=== PATIENT | male | born 1985 | race Caucasian/White ===

== ENCOUNTER 2016-08-28 10:16 | Emergency (ER) | payer MEDICAID ==
[2016-08-28 10:20] VITALS: O2SAT 98
--- NOTE | 2016-08-28 10:31 | EDPHY ---
H & P Stated Complaint: "I need IV fluids and narcoticsc" D/C'd from inpt 2 days ago Time Seen by Provider: 08/28/16 10:28 HPI/ROS: CHIEF COMPLAINT: Nausea vomiting HISTORY OF PRESENT ILLNESS: 31-year-old male history of possible cyclic vomiting verses cannabis hyperemesis syndrome, admitted the hospital few days ago for same complaint, he had multiple chemistry abnormalities including creatinine of 2.4 . He went to follow up with [facility] of the [facility] today, was retching in the waiting room and they recommended he come to the ER for evaluation. He is in the ER complaining of diffuse abdominal pain, cramping, nausea, vomiting, retching. No complaints. No melena or hematochezia. REVIEW OF SYSTEMS: A ten point review of systems was performed and is negative with the exception of the items mentioned in the HPI PAST MEDICAL & SURGICAL HISTORY: chronic marijuana use SOCIAL HISTORY:regular marijuana use PHYSICAL EXAM (Prior to examination, patient consented to physical exam, hands were washed and my usual and customary physical exam procedures followed) 1) GENERAL: Well-developed, well-nourished, alert and oriented. He is retching , guarding his abdomen, moaning 2) HEAD: Normocephalic, atraumatic 3) HEENT: Pupils equal, round, reactive to light bilaterally. Sclera anicteric. Nasopharynx, oropharynx, clear, no lesions. Dry mucous membrane 4) NECK: Full range of motion, no meningeal signs. 5) LUNGS: Clear auscultation bilaterally, no wheezes, no rhonchi, no retractions. 6) HEART: Regular rate and rhythm, no murmur, no heave, no gallop. 7) ABDOMEN: he is guarding his abdomen, no rebound, no focal tenderness, negative McBurney's, negative De La Paz's, negative Rovsing's, negative peritoneal sign, 8) MUSCULOSKELETAL: Moving all extremities, no focal areas of tenderness, no obvious trauma. No peripheral edema or discoloration. 9) BACK: No CVA tenderness, no midline vertebral tenderness, no fluctuance, no step-off, no obvious trauma, no visual or palpable abnormality. 10) SKIN: No rash, no petechiae. 11) Psychiatric: Patient is oriented X 3, there is no agitation. DIFFERENTIAL DIAGNOSIS: My differential diagnosis includes, but is not limited to, acute appendicitis, acute cholecystitis, bowel obstruction, acute pancreatitis, gastritis and urinary tract infection. The patient understands that this diagnosis is provisional and can never be 100% accurate. This is a partial list of diagnoses considered. These considerations are based on history , physical exam, past history and reassessment. - Personal History Current Tetanus Diphtheria and Acellular Pertussis (TDAP): Yes - Medical/Surgical History Hx Asthma: No Hx Chronic Respiratory Disease: No Hx Diabetes: No Hx Cardiac Disease: No Hx Renal Disease: No Hx Cirrhosis: No Hx Alcoholism: No Hx HIV/AIDS: No Hx Splenectomy or Spleen Trauma: No Other PMH: cyclical vomiting, ? IBS, uses marijuana. - Social History Smoking Status: Current every day smoker Constitutional: Initial Vital Signs Heart Rate 127 H 08/28/16 10:18 Respiratory Rate 20 08/28/16 10:18 Blood Pressure 172/108 H 08/28/16 10:18 O2 Sat (%) 98 08/28/16 10:18 O2 Delivery Mode Room Air Allergies/Adverse Reactions: No Known Allergies Allergy (Verified 08/28/16 10:17) Home Medications: Medication Instructions Recorded ALPRAZolam [Xanax 0.5 MG (*)] 0.5 mg PO TID PRN #30 tab 08/26/16 Acetaminophen [Tylenol 325mg (*)] 650 mg PO Q6HRS PRN #0 tab 08/26/16 Calcium Carbonate [Tums 500MG (*)] 500 - 1,000 mg PO Q4 PRN #0 08/26/16 tab.chew Ibuprofen [Motrin (*)] 600 mg PO Q8HRS PRN #0 tab 08/26/16 Ketorolac Tromethamine [Toradol] 10 mg PO Q6H #16 tab 08/26/16 Ondansetron Odt [Zofran Odt 4 mg 4 mg PO Q4HRS PRN #30 tab 08/26/16 (*)] Promethazine HCl [Phenergan 25mg 12.5 mg PO Q6HRS PRN #30 tab 08/26/16 (*)] Medical Decision Making ED Course/Re-evaluation: 10:29 a.m.: I received a phone call from [facility] he has a MIRIMA Correia prior to the patient's visit informed me that she would like to see the patient in clinic this afternoon and recommended he receive IV hydration and emesis control in the ER if possible and then return to the clinic. I have reviewed his old medical records. I am familiar with this patient as I admitted into the hospital service few days ago. Discussed case Dr. Marcela Wall in ER 11:10 a.m.: Re-evaluation after Ativan, Haldol. He remains retching loudly, complaining abdominal pain, nausea. Will administer further medication and revaluate. 12:01 p.m.: Re-evaluation, sleeping. Re-evaluated abdomen which is flat, soft , no guarding no rebound, no McBurney's point pain. Doubt acute surgical abdominal pathology. I do not think that repeat abdominal imaging indicated. He feels comfortable being discharged, feels comfortable going back to an afternoon appointment with [facility] he has with MIRIAM Correia. - Data Points Laboratory Results: Laboratory Results 08/28/16 10:40 08/28/16 10:40 08/28/16 08/28/16 10:40 10:40 WBC 8.69 10^3/uL 10^3/uL (3.80-9.50) RBC 4.90 10^6/uL 10^6/uL (4.40-6.38) Hgb 15.2 g/dL g/dL (13.7-17.5) Hct 42.0 % % (40.0-51.0) MCV 85.7 fL fL (81.5-99.8) MCH 31.0 pg pg (27.9-34.1) MCHC 36.2 g/dL g/dL (32.4-36.7) RDW 13.0 % % (11.5-15.2) Plt Count 227 10^3/uL 10^3/uL (150-400) MPV 9.0 fL fL (8.7-11.7) Neut % (Auto) 78.0 % H % (39.3-74.2) Lymph % (Auto) 12.4 % L % (15.0-45.0) [place] % (Auto) 7.7 % % (4.5-13.0) Eos % (Auto) 0.9 % % (0.6-7.6) Baso % (Auto) 0.5 % % (0.3-1.7) Nucleat RBC Rel Count 0.0 % % (0.0-0.2) Absolute Neuts (auto) 6.78 10^3/uL H 10^3/uL (1.70-6.50) Absolute Lymphs (auto) 1.08 10^3/uL 10^3/uL (1.00-3.00) Absolute Monos (auto) 0.67 10^3/uL 10^3/uL (0.30-0.80) Absolute Eos (auto) 0.08 10^3/uL 10^3/uL (0.03-0.40) Absolute Basos (auto) 0.04 10^3/uL 10^3/uL (0.02-0.10) Absolute Nucleated RBC 0.00 10^3/uL 10^3/uL (0-0.01) Immature Gran % 0.5 % % (0.0-1.1) Immature Gran # 0.04 10^3/uL 10^3/uL (0.00-0.10) Sodium 144 mEq/L mEq/L (134-144) Potassium 4.0 mEq/L mEq/L (3.5-5.2) Chloride 104 mEq/L mEq/L (97-110) Carbon Dioxide 24 mEq/l mEq/l (22-31) Anion Gap 16 mEq/L mEq/L (8-16) BUN 28 mg/dL H mg/dL (7-23) Creatinine 1.0 mg/dL mg/dL (0.7-1.3) Estimated GFR > 60 Glucose 106 mg/dL H mg/dL (70-100) Calcium 10.5 mg/dL H mg/dL (8.5-10.4) Total Bilirubin 1.0 mg/dL mg/dL (0.1-1.4) Conjugated Bilirubin 0.4 mg/dL mg/dL (0.0-0.5) Unconjugated Bilirubin 0.6 mg/dL mg/dL (0.0-1.1) AST 31 IU/L IU/L (17-59) ALT 31 IU/L IU/L (21-72) Alkaline Phosphatase 68 IU/L IU/L (38-126) Total Protein 8.3 g/dL H g/dL (6.3-8.2) Albumin 5.2 g/dL H g/dL (3.5-5.0) Lipase 73.0 IU/L IU/L (23-300) Medications Given: Discontinued Medications Haloperidol Lactate (Haldol Injection) 5 mg IVP EDNOW ONE Stop: 08/28/16 10:46 Last Admin: 08/28/16 10:54 Dose: 5 mg Hydromorphone HCl (Dilaudid) 1 mg IVP EDNOW ONE Stop: 08/28/16 11:16 Last Admin: 08/28/16 11:33 Dose: 1 mg Sodium Chloride (Ns) 1,000 mls @ 0 mls/hr IV ONCE ONE PRN Reason: Wide Open Stop: 08/28/16 10:46 Last Admin: 08/28/16 10:55 Dose: 1,000 mls Ketorolac Tromethamine (Toradol) 30 mg IVP EDNOW ONE Stop: 08/28/16 10:46 Last Admin: 08/28/16 10:55 Dose: 30 mg Lorazepam (Ativan Injection) 2 mg IVP EDNOW ONE Stop: 08/28/16 10:46 Last Admin: 08/28/16 10:55 Dose: 2 mg Ondansetron HCl (Zofran) 4 mg IVP EDNOW ONE Stop: 08/28/16 11:24 Last Admin: 08/28/16 11:34 Dose: 4 mg Departure - Departure Disposition: Home, Routine, Self-Care Clinical Impression: Nausea & vomiting Qualifiers: Vomiting type: cyclical vomiting Vomiting Intractability: non-intractable Qualified Code(s): G43.A0 - Cyclical vomiting, not intractable Condition: Good Instructions: Acute Nausea and Vomiting (ED) Additional Instructions: Seek immediate medical attention if you develop new or worsening symptoms, if you develop fevers, chills, inability to tolerate oral intake or any other symptoms that concerns you. Referrals: Go, to [facility] this afternoon [Other] - 08/28/16 1:00 pm
[2016-08-28] MEDS ORDERED: KETOROLAC 30 MG/1 ML SDV IVP ONE (10:45)
[2016-08-28] MEDS ORDERED: LORazepam 2 MG/ML INJ IVP ONE (10:45)
[2016-08-28] MEDS ORDERED: NS 1,000 ML IV ONE (10:45)
[2016-08-28] MEDS ORDERED: HALOPERIDOL LACT 5 MG/ML INJ IVP ONE (10:45)
[2016-08-28 10:54] LABS: % IMMATURE GRANULYOCYTES 0.5 % (0.0-1.1); ABSOLUTE IMMATURE GRANULOCYTES 0.04 10^3/uL (0.00-0.10); ADD DIFF? NO; ADD MORPH? NO; ADD SCAN? NO; ATYPICAL LYMPHOCYTE FLAG 0 (0-99); FRAGMENT RBC FLAG 0 (0-99); HEMOGLOBIN 15.2 g/dL (13.7-17.5); LEFT SHIFT FLG 0 (0-99); LIPEMIA HEMOLYSIS FLAG 90 (0-99); MEAN CELL HEMOGLOBIN CONCENTR. 36.2 g/dL (32.4-36.7); MEAN CELL VOLUME 85.7 fL (81.5-99.8); PLATELET CLUMPS FLAG 20 (0-99); PLATELET COUNT 227 10^3/uL (150-400)
[2016-08-28 11:12] LABS: ALANINE AMINOTRANSFERASE 31 IU/L (21-72); ALBUMIN 5.2 g/dL (3.5-5.0); ALKALINE PHOSPHATASE 68 IU/L (38-126); ANION GAP 16 mEq/L (8-16); ASPARTATE AMINOTRANSFERASE 31 IU/L (17-59); BILIRUBIN-CONJUGATED 0.4 mg/dL (0.0-0.5); BILIRUBIN-UNCONJUGATED 0.6 mg/dL (0.0-1.1); CALCIUM 10.5 mg/dL (8.5-10.4); CARBON DIOXIDE 24 mEq/l (22-31); CHLORIDE 104 mEq/L (97-110); GLOMERULAR FILTRATION RATE > 60; GLUCOSE 106 mg/dL (70-100); SODIUM 144 mEq/L (134-144); TOTAL PROTEIN 8.3 g/dL (6.3-8.2)
[2016-08-28] MEDS ORDERED: HYDROmorphONE/DILAUDID 1 MG/ML SYR IVP ONE (11:15)
[2016-08-28] MEDS ORDERED: ONDANSETRON 4 MG/2 ML VIAL IVP ONE (11:23)
[2016-08-28 12:59] VITALS: BP 172/105; PULSE 83; RESP 16
== END 2016-08-28 12:57 | disposition home or self-care (01) ==
LOC: MERGE 10:16
DX: G43.A0 Cyclical vomiting, in migraine, not intractable (principal); F17.200 Nicotine dependence, unspecified, uncomplicated
CPT/HCPCS: 96374; J1170; J1885; J2405

== ENCOUNTER 2018-08-18 05:26 | Emergency (ER) | payer MEDICAID ==
[2018-08-18 05:37] VITALS: BP 158/95
--- NOTE | 2018-08-18 06:08 | EDPHY ---
H & P Stated Complaint: 160mg adderall and ETOH to get high not for SI neck tightness and JOHN Time Seen by Provider: 08/18/18 05:40 HPI/ROS: Chief Complaint: Headache, anxious status post amphetamine use HPI: 33-year-old male presenting requesting medical evaluation after taking 160 mg of Adderall and drinking vodka. Patient states that he has a history of substance abuse but has been through rehab in the past. The last 2 months he has been using Vyvanse, Ritalin and Adderall recreationally. He has had increasing stressors and took the Adderall this morning. He then became quite anxious and agitated in decided to drink vodka to counteract this. He states that recently when taking the amphetamines he has been noticing headache in the right side of his head in tightness in his neck. No chest pain or shortness of breath. No cough. No fevers or chills. He is currently without complaint. He denies being depressed or suicidal. He is not attempting to harm himself but admits to taking these recreationally. He is anuja for safety. Currently is just wants to be examined and provided resources to help with his substance abuse. ROS: 10 systems were reviewed and were negative except those elements noted in the HPI. PMH: Substance abuse Social History: No smoking, positive alcohol, positive methamphetamine abuse Family History: non-contributory Physical Exam: Gen: Awake, Alert, mildly slurred speech, appears mildly intoxicated HEENT: Nose: no rhinorrhea Eyes: PERRLA, EOMI Mouth: Moist mucosa Neck: Supple, no JVD Chest: nontender, lungs clear to auscultation Heart: S1, S2 normal, no murmur Abd: Soft, non-tender, no guarding Back: no CVA tenderness, no midline tenderness Ext: no edema, non-tender Skin: no rash Neuro: CN II-XII intact, Sensation grossly intact, Strength 5/5 in bilateral upper and lower extremities - Personal History Current Tetanus/Diphtheria Vaccine: Yes Current Tetanus Diphtheria and Acellular Pertussis (TDAP): Yes - Medical/Surgical History Hx Asthma: No Hx Chronic Respiratory Disease: No Hx Diabetes: No Hx Cardiac Disease: No Hx Renal Disease: No Hx Cirrhosis: No Hx Alcoholism: No Hx HIV/AIDS: No Hx Splenectomy or Spleen Trauma: No Other PMH: cyclical vomiting, ? IBS, uses marijuana. - Social History Smoking Status: Current every day smoker Constitutional: Initial Vital Signs Temperature (C) 36.5 C 08/18/18 05:27 Heart Rate 114 H 08/18/18 05:27 Respiratory Rate 18 08/18/18 05:27 Blood Pressure 158/95 H 08/18/18 05:27 O2 Sat (%) 96 08/18/18 05:27 O2 Delivery Mode Room Air Allergies/Adverse Reactions: No Known Allergies Allergy (Verified 08/18/18 05:37) Home Medications: Medication Instructions Recorded NK [No Known Home Meds] 08/18/18 Medical Decision Making ED Course/Re-evaluation: 33-year-old male presenting and mildly intoxicated with concerns after taking Adderall and alcohol. He has not have a headache or any other symptoms at this time. He is fully conversant. He is mostly requesting assistance with his substance abuse. I have explained to him that I can refer [facility] and to primary care for follow-up but I do not have resources to sent him directly to rehab facility. He states he does not want a rehab facility he just wants a medical evaluation and some advice on how to proceed. I have explained to him that I do not see any evidence of acute medical condition. He is tachycardic which is consistent which is consistent with his amphetamine use. The patient is very tangential in rambling in his speech. He has repeated thing several times. He is here with his girlfriend. I have made multiple attempts to reassure the patient explained to them that he has not have an emergency medical condition and his examination is unremarkable. He can be discharged to home. Patient states that he feels that I am not listening to him and I am judging him. I have explained to him that is not the case and I am happy to assist him with his substance abuse problems. He does not require any further evaluation in the emergency department at this time. Departure - Departure Disposition: Home, Routine, Self-Care Clinical Impression: Polysubstance abuse, Alcoholic intoxication Condition: Good Instructions: Alcohol Intoxication (ED), Polysubstance Abuse (ED) Additional Instructions: Please contact the addiction recovery Center for resources to help you with your substance abuse. Follow up with primary care physician for further evaluation for any medical concerns. Referrals: Fariha Montejo MD [Medical Doctor] - As per Instructions [facility] [Outside] - As per Instructions
== END 2018-08-18 06:18 | disposition home or self-care (01) ==
DX: F19.10 Other psychoactive substance abuse, uncomplicated (principal); F10.920 Alcohol use, unspecified with intoxication, uncomplicated

== ENCOUNTER 2018-09-19 20:22 | Emergency (ER) | payer MEDICAID, OTHER ==
[2018-09-19] MEDS ORDERED: NS 1,000 ML IV ONE ×3 (20:49→22:09)
[2018-09-19] MEDS ORDERED: HALOPERIDOL LACT 5 MG/ML INJ IVP ONE (20:49)
[2018-09-19] MEDS ORDERED: LORazepam 2 MG/ML INJ IVP ONE (20:50)
--- NOTE | 2018-09-19 20:50 | EDPHY ---
H & P Stated Complaint: wants fluids for "stress induced nausea disorder" Source: Patient Exam Limitations: No limitations - Personal History Current Tetanus/Diphtheria Vaccine: Yes Current Tetanus Diphtheria and Acellular Pertussis (TDAP): Yes - Medical/Surgical History Hx Asthma: No Hx Chronic Respiratory Disease: No Hx Diabetes: No Hx Cardiac Disease: No Hx Renal Disease: No Hx Cirrhosis: No Hx Alcoholism: No Hx HIV/AIDS: No Hx Splenectomy or Spleen Trauma: No Other PMH: cyclical vomiting, ? IBS, uses marijuana. - Social History Smoking Status: Current every day smoker Time Seen by Provider: 09/19/18 20:47 HPI/ROS: HPI: This is a 33-year-old male who presents with Chief Complaint: wants fluids for "stress induced nausea disorder" Location: GI Quality: Nausea, vomiting Duration: Since 4:00 a.m. Signs and Symptoms: no fever, + nausea, + vomiting, no hematemesis, no blood in stool, no abdominal bloating, no diarrhea, no back pain, no urinary symptoms, no testicular/groin pain, no indigestion, no chest pain, no shortness of breath Timing: Acute, intermittent episodes Severity: Moderate Context: Patient has a history of cyclical vomiting syndrome, marijuana use, irritable bowel syndrome presents with sudden onset around 4:00 a.m. This morning of nausea and vomiting approximately 10-20 times. He denies any hematemesis, blood in stool, fever, diarrhea. He did report he had 3 bowel movements today. Patient denies recent alcohol or marijuana use. He reports that he "is under a lot of stress." Does not follow with Gastroenterology. Modifying Factors: None Comment: ROS: A comprehensive 10 system review of systems is otherwise negative aside from elements mentioned in the history of present illness. MEDICAL/SURGICAL/SOCIAL HISTORY: Medical history: Cyclical vomiting syndrome, marijuana user, irritable bowel syndrome Surgical history: Denies Social history: Daily tobacco user. Family history noncontributory. CONSTITUTIONAL: Moderate distress, extremely well-appearing, adult white male, smells heavily of tobacco, awake and alert, no obvious distress HEENT: Atraumatic and normocephalic, PERRL, EOMI. Nares patent; no rhinorrhea; no nasal mucosal edema. Tympanic membranes clear. Oropharynx clear, no exudate and moist pink mucosa. Airway patent. No lymphadenopathy. No meningismus. Cardiovascular: Normal S1/S2, regular rate, regular rhythm, without murmur rub or gallop. PULMONARY/CHEST: Symmetrical and nontender. Clear to auscultation bilaterally. Good air movement. No accessory muscle usage. ABDOMEN: Soft, nondistended, mild generalized tenderness, no rebound, no guarding, no peritoneal signs, no masses or organomegaly. No CVAT. EXTREMITIES: 2/2 pulses, strength 5/5, no deformities, no clubbing, no cyanosis or edema. NEUROLOGICAL: no focal neuro deficits. GCS 15. SKIN: Warm and dry, no erythema. no rash. Good capillary refill. (Shahnaz Ryder) Constitutional: Initial Vital Signs Temperature (C) 36.7 C 09/19/18 20:23 Heart Rate 122 H 09/19/18 20:23 Respiratory Rate 18 09/19/18 20:23 Blood Pressure 131/107 H 09/19/18 20:23 O2 Sat (%) 99 09/19/18 20:23 O2 Delivery Mode Room Air Allergies/Adverse Reactions: No Known Allergies Allergy (Verified 09/19/18 20:26) Home Medications: Medication Instructions Recorded Ondansetron Odt [Zofran Odt 4 mg 4 mg PO Q4 PRN #12 tab 09/19/18 (*)] RX: Promethazine HCl 25 mg PO Q6 PRN #10 tablet 09/19/18 Medical Decision Making ED Course/Re-evaluation: I did not see this patient while he was in the emergency department. However his care was discussed with the PA while the patient was in the department. I agree with treatment plan and management (Mic Haney) Vital signs reviewed and show elevated blood pressure and tachycardia. IV access, laboratory studies ordered Abdomen is soft and minimally tender. Doubt surgical process or need for imaging. Given 3 L normal saline, IV Haldol 2.5 mg, IV Ativan 2 mg 2210: Labs reviewed. BUN 26, creatinine 3.2 ED decision to consult for admission for pre renal acute kidney injury secondary to GI losses. Patient refused admission to the hospital despite knowing risks of acute kidney injury, electrolyte imbalance, arrhythmias, sepsis , . Friend at bedside reports that patient will not stay in the hospital. Patient is alert and oriented x4. Patient refused to have repeat laboratory studies drawn. No episodes of emesis 4 hr while in the emergency room. 0030: Signed AMA paperwork. Repeat abdominal exam is soft and nontender. Again recommend inpatient admission for IV fluid hydration and repeat labs in the morning and patient adamantly declined. Given a prepack for promethazine and of prescription for promethazine and Zofran with Gastroenterology and [facility] follow-up This patient was seen under the supervision of my secondary supervising physician. I evaluated care for this patient with attending. (Shahnaz Ryder) Differential Diagnosis: Abdominal pain including but not limited to appendicitis, cholecystitis, gastritis and urinary tract infection. (Shahnaz Ryder) - Data Points Laboratory Results: Laboratory Results 09/19/18 21:15 09/19/18 21:15 Sodium 139 mEq/L mEq/L (135-145) Potassium 5.0 mEq/L mEq/L (3.5-5.2) Chloride 96 mEq/L L mEq/L (97-110) Carbon Dioxide 14 mEq/l L mEq/l (22-31) Anion Gap 29 mEq/L H mEq/L (6-14) BUN 26 mg/dL H mg/dL (7-23) Creatinine 3.2 mg/dL H mg/dL (0.7-1.3) Estimated GFR 22 Glucose 213 mg/dL H mg/dL (70-100) Calcium 12.5 mg/dL H mg/dL (8.5-10.4) Phosphorus 5.5 mg/dL H mg/dL (2.5-4.5) Total Bilirubin 1.0 mg/dL mg/dL (0.1-1.4) Conjugated Bilirubin 0.6 mg/dL H mg/dL (0.0-0.5) Unconjugated Bilirubin 0.4 mg/dL mg/dL (0.0-1.1) AST 25 IU/L IU/L (17-59) ALT 22 IU/L IU/L (21-72) Alkaline Phosphatase 101 IU/L IU/L (38-126) Total Protein 10.5 g/dL H g/dL (6.3-8.2) Albumin 7.0 g/dL H g/dL (3.5-5.0) Lipase 87 IU/L IU/L (23-300) Medications Given: Discontinued Medications Haloperidol Lactate (Haldol Injection) 2.5 mg IVP EDNOW ONE Stop: 09/19/18 20:50 Last Admin: 09/19/18 21:20 Dose: 2.5 mg Sodium Chloride (Ns) 1,000 mls @ 0 mls/hr IV EDNOW ONE; Wide Open PRN Reason: Protocol Stop: 09/19/18 20:50 Last Admin: 09/19/18 21:19 Dose: 1,000 mls Sodium Chloride (Ns) 1,000 mls @ 0 mls/hr IV EDNOW ONE; Wide Open PRN Reason: Protocol Stop: 09/19/18 20:50 Last Admin: 09/19/18 21:19 Dose: 1,000 mls Sodium Chloride (Ns) 1,000 mls @ 0 mls/hr IV EDNOW ONE; Wide Open PRN Reason: Protocol Stop: 09/19/18 22:10 Last Admin: 09/19/18 22:31 Dose: 1,000 mls Lorazepam (Ativan Injection) 2 mg IVP EDNOW ONE Stop: 09/19/18 20:51 Last Admin: 09/19/18 21:20 Dose: 2 mg Promethazine HCl (Phenergan 25 Mg Prepack #4) 1 btl TAKEHOME EDNOW ONE Stop: 09/19/18 22:29 Last Admin: 09/19/18 22:35 Dose: 1 btl Departure - Departure Disposition: Against Medical Advice Clinical Impression: Cyclical vomiting syndrome Qualifiers: Vomiting Intractability: non-intractable Nausea presence: with nausea Qualified Code(s): G43.A0 - Cyclical vomiting, not intractable Condition: Good Instructions: Promethazine (Into the rectum), Cyclic Vomiting Syndrome (ED) Additional Instructions: Consume a minimum of 8-10 glasses of water or electrolyte fluid replacement drinks that include Gatorade, Powerade, Pedialyte. Eat a bland diet for the next 48 hours and then slowly advance as tolerated. Take Zofran 1 tab every 4 hours as needed for nausea, vomiting. Take Phenergan 1 tab every 6 hr as needed for nausea, vomiting not relieved by Zofran. Establish care with Gastroenterology in the next 1-2 weeks. [facility]. Avoid using marijuana and reduce stress in your life. By leaving against medical advise you have verbalized complete understanding and acceptance of the risks associated with doing so, including, but not limited to, , chronic & permanent disability and impairment, and other circumstances and consequences too numerous to mention herein. Referrals: Juliano Donis MD [Medical Doctor] - As per Instructions [facility],. [Clinic] - As per Instructions Prescriptions: Ondansetron Odt [Zofran Odt 4 mg (*)] 4 mg PO Q4 PRN #12 tab PRN Reason: Nausea/Vomiting, Use 1st RX: Promethazine HCl 25 mg PO Q6 PRN #10 tablet PRN Reason: Nausea/Vomiting, Use 2nd
[2018-09-19] MEDS ORDERED: PROMETHAZINE 25 MG PREPACK #4 BTL TAKEHOME ONE (22:28)
[2018-09-19 23:17] VITALS: BP 122/78
== END 2018-09-20 00:19 | disposition left against medical advice (07) ==
DX: G43.A0 Cyclical vomiting, in migraine, not intractable (principal); E86.9 Volume depletion, unspecified
CPT/HCPCS: 96374; J1630; J2060

== ENCOUNTER 2018-11-08 16:03 | Emergency (ER) | payer MEDICAID ==
[2018-11-08] MEDS ORDERED: NS 1,000 ML IV ONE ×3 (16:21→17:38)
[2018-11-08] MEDS ORDERED: PROMETHAZINE HCL 25 MG/ML INJ IVP ONE (16:26)
[2018-11-08] MEDS ORDERED: LORazepam 2 MG/ML INJ IVP ONE ×2 (16:27→17:09)
--- NOTE | 2018-11-08 16:50 | EDPHY ---
General - Diagnostics EKG: I reviewed patient's EKG. 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 Patient reports using a single dose of Zofran and Phenergan at home prior to arrival without significant improvement. He reports Haldol seems to be the only thing that works for him. Patient arrives pale, diaphoretic, but cooperative, not actively retching on arrival, and nontoxic. Initially arrives tachycardic with rapid improvement in his heart rate after a L of IV fluids. . Patient stable at time of sign-out. Abdomen with generalized discomfort but no focalized peritoneal findings or suggestion of acute surgical process. He was initially treated with Ativan and Phenergan, Zofran and Haldol withheld pending potassium levels due to risk of torsades. Patient was found to be hyperkalemic at 6. EKG ordered. Case discussed with Dr. Thomas who assumed care of this patient at 5:00 p.m.. Plan for aggressive IV hydration and recheck of labs DIFFERENTIAL DX: Abdominal pain includes but not limited to acute appendicitis, diverticulitis, cholecystitis, pancreatitis, SBO, gastroenteritis, constipation ED PROCEDURES: See lab and/or imaging results below ED COURSE: 4:55 p.m.: Case signed out to Dr. Thomas pending lab evaluation, reassessment , IV hydration. CHIEF COMPLAINT: Nausea vomiting abdominal pain HPI: 33-year-old male with a known history of cyclic vomiting, unclear if this is due to chronic cyclic vomiting versus stress-induced vomiting versus hyperemesis cannabinoid syndrome. He is followed by [facility]. He reports for the last 24 hr he has been nauseous and vomiting. He complains of generalized abdominal discomfort. He denies hematemesis and diarrhea. He states "they usually do Haldol, please can I just tapped Haldol". He admits that he takes Zofran and promethazine as needed at home and states he took a single dose of both of these today but he is out. He does not believe that vomiting is causing his symptoms. He reports no fevers or chills. PAST MEDICAL HISTORY: Hyperemesis syndrome See triage summary and nurse notes for addition applicable history Pertinent Past Surgical History: IBS REVIEW OF SYSTEMS: A full 10 point review of systems was negative except for those mentioned in HPI. PHYSICAL EXAM: General Appearance: Alert, oriented, appropriate, pale, laying in the bed, not actively retching, tachycardic, afebrile, diaphoretic, no hypoxia. HEENT: Oropharynx clear is no erythema or exudates, no tonsillar hypertrophy or asymmetry.] Respiratory: There are no retractions, lungs are clear to auscultation. Cardiac: Regular rate and rhythm, no murmurs or gallops. Gastrointestinal: Abdomen is soft, nontender, hypoactive bowel sounds, no masses /hernia, no rigidity, guarding or focal peritoneal findings. Skin: Warm, dry, no rashes, no nodules on palpation, pale. MEDICAL DECISION MAKING: Patient was seen independently. Secondary supervising physician at time of evaluation was: Dr Thomas. Diagnosis: Hyperemesis cannabinoid syndrome . New, requires workup Summary: See Assessment and Plan for summary of ED visit Clinical lab tests: ordered / reviewed. Decision to obtain medical records or history from someone other than the patient: No Review / Summarize previous medical records: Yes Discussed patient with another provider: Dr. Thomas Patient Progress: Stable at time of sign-out at 5:00 p.m. . (Julien Morris) Medical Decision Makin:00 p.m. the patient's symptoms had completely resolved. We fermín blood to recheck and his chemistries because there is significantly abnormal. He had 3 L of fluid. However this blood was rejected and the patient did not wish to have it redrawn. He left AMA without talking to me. (Flakito Thomas) - Objective Vital Signs: Initial Vital Signs Temperature (C) 36.4 C 11/08/18 16:09 Heart Rate 134 H 11/08/18 16:09 Respiratory Rate 30 H 11/08/18 16:09 Blood Pressure 112/78 11/08/18 16:09 O2 Sat (%) 95 11/08/18 16:09 O2 Delivery Mode Room Air Allergies/Adverse Reactions: No Known Allergies Allergy (Verified 11/08/18 16:08) Home Medications: Medication Instructions Recorded Ondansetron Odt [Zofran Odt 4 mg 4 mg PO Q4 PRN #12 tab 09/19/18 (*)] Laboratory Results: Laboratory Results 11/08/18 16:30 11/08/18 18:25 Medications Given: Discontinued Medications Haloperidol Lactate (Haldol Injection) 5 mg IVP EDNOW ONE Stop: 11/08/18 17:10 Last Admin: 11/08/18 17:12 Dose: 5 mg Sodium Chloride (Ns) 1,000 mls @ 0 mls/hr IV EDNOW ONE; Wide Open PRN Reason: Protocol Stop: 11/08/18 16:22 Last Admin: 11/08/18 16:34 Dose: 1,000 mls Sodium Chloride (Ns) 1,000 mls @ 0 mls/hr IV EDNOW ONE; Wide Open PRN Reason: Protocol Stop: 11/08/18 17:07 Last Admin: 11/08/18 17:07 Dose: 1,000 mls Sodium Chloride (Ns) 1,000 mls @ 0 mls/hr IV EDNOW ONE; Wide Open PRN Reason: Protocol Stop: 11/08/18 17:39 Last Admin: 11/08/18 17:40 Dose: 1,000 mls Lorazepam (Ativan Injection) 1 mg IVP EDNOW ONE Stop: 11/08/18 16:28 Last Admin: 11/08/18 16:35 Dose: 1 mg Lorazepam (Ativan Injection) 1 mg IVP EDNOW ONE Stop: 11/08/18 17:10 Last Admin: 11/08/18 17:14 Dose: 1 mg Promethazine HCl (Phenergan) 12.5 mg IVP ONCE ONE Stop: 11/08/18 16:27 Last Admin: 11/08/18 16:36 Dose: 12.5 mg Departure <Flakito Thomas E - Last Filed: 11/08/18 20:39> <Julien Morris - Last Filed: 11/09/18 09:20> - Departure Disposition: Against Medical Advice Clinical Impression: Cyclic vomiting syndrome Condition: Fair Instructions: Cyclic Vomiting Syndrome (ED) Referrals: NONE *PRIMARY CARE P,. [Primary Care Provider] - As per Instructions
[2018-11-08 16:53] LABS: PLATELET COUNT 432 10^3/uL (150-400)
[2018-11-08] MEDS ORDERED: HALOPERIDOL LACT 5 MG/ML INJ IVP ONE (17:09)
--- NOTE | 2018-11-08 17:54 | CPEKG ---
Test Reason : OPEN Blood Pressure : / mmHG Vent. Rate : 089 BPM Atrial Rate : 097 BPM P-R Int : 131 ms QRS Dur : 084 ms QT Int : 371 ms P-R-T Axes : 075 088 080 degrees QTc Int : 452 ms Sinus rhythm Probable left atrial enlargement ST elev, probable normal early repol pattern Confirmed by Ariana Lomeli ([id number]) on 11/08/2018 5:54:02 PM Referred By: ARIANA LOMELI Confirmed By:Ariana Lomeli
[2018-11-08 18:14] VITALS: BP 140/74
== END 2018-11-08 19:05 | disposition left against medical advice (07) ==
DX: G43.A0 Cyclical vomiting, in migraine, not intractable (principal)
CPT/HCPCS: 96374; J1630; J2060; J2550

== ENCOUNTER 2018-11-10 21:06 | Inpatient (IN) | payer MEDICAID ==
--- NOTE | 2018-11-10 21:12 | EDPHY ---
H & P Stated Complaint: cyclic vomiting - Medical/Surgical History Hx Asthma: No Hx Chronic Respiratory Disease: No Hx Diabetes: No Hx Cardiac Disease: No Hx Renal Disease: No Hx Cirrhosis: No Hx Alcoholism: No Hx HIV/AIDS: No Hx Splenectomy or Spleen Trauma: No Other PMH: cyclical vomiting, ? IBS, uses marijuana. - Social History Smoking Status: Current every day smoker Time Seen by Provider: 11/10/18 21:11 Constitutional: Initial Vital Signs Temperature (C) 36.7 C 11/10/18 21:08 Heart Rate 150 H 11/10/18 21:08 Respiratory Rate 20 11/10/18 21:08 Blood Pressure 150/94 H 11/10/18 21:08 O2 Sat (%) 96 11/10/18 21:08 O2 Delivery Mode Room Air Allergies/Adverse Reactions: No Known Allergies Allergy (Verified 11/10/18 21:08) Home Medications: Medication Instructions Recorded Ondansetron Odt [Zofran Odt 4 mg 4 mg PO Q4 PRN #12 tab 09/19/18 (*)] Medical Decision Making ED Course/Re-evaluation: CHIEF COMPLAINT: Cyclic vomiting HISTORY OF PRESENT ILLNESS: The patient is a 33 y/o male with a history of cyclic vomiting complaining of cyclic vomiting. He was here 2 days ago and received 2mg IV Ativan, 5mg IV Haldol, 12.5mg IV Phenergan, and 3L IV NS. However, he was discharged and reports that his symptoms never completely resolved. As he is still vomiting, he decided to present to the emergency department. No fever, headache, body aches, lightheadedness, chest pain, heart palpitations, shortness of breath, cough, abdominal pain, urinary or bowel complaints, numbness, paresthesias. REVIEW OF SYSTEMS: A 10 point review of systems was performed and is negative with the exception of the elements mentioned in the history of present illness. PHYSICAL EXAM: HR, BP, O2 Sat, RR. Temp noted General Appearance: Appears nauseated, dehydrated, appropriate, and non-toxic appearing. Head: Atraumatic without scalp tenderness or obvious injury Eyes: Pupils equal, round, reactive to light and accommodation, EOMI, no trauma , no injection. Ears: Clear bilaterally, no perforation, normal landmarks Nose: Atraumatic, no rhinorrhea, clear. Throat: There is no erythema or exudates, no lesions, normal tonsils, mucus membranes moist. Neck: Supple, 2+ carotid upstroke, nontender, no lymphadenopathy. Respiratory: No retractions, no distress, no wheezes, and no accessory muscle use. Lungs are clear to auscultation bilaterally. Cardiovascular: Regular rate and rhythm, no murmurs, rubs, or gallops. Bilateral carotid, radial, dorsalis pedis, and posterior tibial pulses intact. Good capillary refill all extremities. Gastrointestinal: Abdomen is soft, nontender, non-distended, no masses, no rebound, no guarding, no peritoneal signs. Musculoskeletal: Normal active ROM of all extremities, atraumatic. Neurological: Alert, appropriate, and interactive. The patient has normal DTRs and non-focal cranial nerves, motor, sensory, and cerebellar exam. Skin: No rashes, good turgor, no nodules on palpation. Past medical history: Cyclic vomiting, IBS Past surgical history: Denies Family history: Denies Social history: Friend at bedside, employed, lives in [place] DIAGNOSTICS/PROCEDURES/CRITICAL CARE TIME: Not indicated. DIFFERENTIAL DIAGNOSIS: The differential diagnosis for the patient's nausea and vomiting included but was not limited to gastroenteritis, gastritis, appendicitis, and medication side effect. MEDICAL DECISION MAKING: The patient is a 33 y/o male with a history of cyclic vomiting presenting with cyclic vomiting onset 2 days ago. He was here 2 days ago and received 2mg IV Ativan, 5mg IV Haldol, 12.5mg IV Phenergan, and 3L IV NS. On exam he appears nauseated and dehydrated. Labs ordered; 2L IV NS, 30mg IV Ketamine, and 12.5mg IV Phenergan administered. 2143: Patient is only feeling mildly improved; additional 20mg IV Ketamine administered. 2158: Reassessed patient, he is not feeling better. Capsaicin applied to his abdomen. 0: Patient care turned over to Dr. Membreno at shift change. (Edilson Lee) 2225: Patient's lab work reviewed he has elevated creatinine of 4.4 and a BUN close to 50. The patient need to be admitted for renal failure, acute kidney injury from volume depletion dehydration intractable nausea vomiting cyclic vomiting syndrome. Patient noted to have a heart rate of 150s upon arrival it is currently 120s. He is getting 2 L of normal saline at this time. The patient's potassium is okay. Plan for admission for dehydration acute kidney injury. 2237: Patient accepted by Dr. Veronica. Patient agrees for admission. (Rickie Membreno) - Data Points Laboratory Results: Laboratory Results 11/10/18 22:05 11/10/18 11/10/18 22:10 22:05 WBC 17.31 10^3/uL H 10^3/uL (3.80-9.50) RBC 5.79 10^6/uL 10^6/uL (4.40-6.38) Hgb 18.4 g/dL H g/dL (13.7-17.5) POC Hgb 19.4 gm/dL H gm/dL (13.7-17.5) Hct 50.4 % % (40.0-51.0) POC Hct 57 % H % (40-51) MCV 87.0 fL fL (81.5-99.8) MCH 31.8 pg pg (27.9-34.1) MCHC 36.5 g/dL g/dL (32.4-36.7) RDW 11.9 % % (11.5-15.2) Plt Count 375 10^3/uL 10^3/uL (150-400) MPV 9.3 fL fL (8.7-11.7) Neut % (Auto) 85.1 % H % (39.3-74.2) Lymph % (Auto) 6.2 % L % (15.0-45.0) [place] % (Auto) 7.8 % % (4.5-13.0) Eos % (Auto) 0.1 % L % (0.6-7.6) Baso % (Auto) 0.2 % L % (0.3-1.7) Nucleat RBC Rel Count 0.0 % % (0.0-0.2) Absolute Neuts (auto) 14.74 10^3/uL H 10^3/uL (1.70-6.50) Absolute Lymphs (auto) 1.07 10^3/uL 10^3/uL (1.00-3.00) Absolute Monos (auto) 1.35 10^3/uL H 10^3/uL (0.30-0.80) Absolute Eos (auto) 0.01 10^3/uL L 10^3/uL (0.03-0.40) Absolute Basos (auto) 0.04 10^3/uL 10^3/uL (0.02-0.10) Absolute Nucleated RBC 0.00 10^3/uL 10^3/uL (0-0.01) Immature Gran % 0.6 % % (0.0-1.1) Immature Gran # 0.10 10^3/uL 10^3/uL (0.00-0.10) POC Sodium 130 mEq/L L mEq/L (135-145) POC Potassium 4.3 mEq/L mEq/L (3.3-5.0) POC Chloride 88 mEq/L L mEq/L (97-110) POC Total CO2 26 mEq/L mEq/L (22-31) POC BUN 51 mg/dL H mg/dL (7-23) POC Creatinine 4.4 mg/dL H mg/dL (0.7-1.3) POC Glucose 156 mg/dL H mg/dL (70-100) Medications Given: Discontinued Medications Sodium Chloride (Ns) 1,000 mls @ 0 mls/hr IV EDNOW ONE; Wide Open PRN Reason: Protocol Stop: 11/10/18 21:16 Last Admin: 11/10/18 21:21 Dose: 1,000 mls Sodium Chloride (Ns) 1,000 mls @ 0 mls/hr IV EDNOW ONE; Wide Open PRN Reason: Protocol Stop: 11/10/18 21:16 Last Admin: 11/10/18 21:21 Dose: 1,000 mls Ketamine HCl (Ketamine) 30 mg IV EDNOW ONE Stop: 11/10/18 21:15 Last Admin: 11/10/18 21:23 Dose: 30 mg Ketamine HCl (Ketamine) 20 mg IV EDNOW ONE Stop: 11/10/18 21:44 Last Admin: 11/10/18 22:01 Dose: 20 mg Promethazine HCl (Phenergan) 12.5 mg IVP EDNOW ONE Stop: 11/10/18 21:15 Last Admin: 11/10/18 21:23 Dose: 12.5 mg Point of Care Test Results: Chemistry 11/10/18 22:10 POC Sodium 130 mEq/L L mEq/L (135-145) POC Potassium 4.3 mEq/L mEq/L (3.3-5.0) POC Chloride 88 mEq/L L mEq/L (97-110) POC Total CO2 26 mEq/L mEq/L (22-31) POC BUN 51 mg/dL H mg/dL (7-23) POC Creatinine 4.4 mg/dL H mg/dL (0.7-1.3) POC Glucose 156 mg/dL H mg/dL (70-100) ISTAT H&H 11/10/18 22:10 POC Hgb 19.4 gm/dL H gm/dL (13.7-17.5) POC Hct 57 % H % (40-51) Departure - Departure Disposition: [facility] Inpatient Acute Clinical Impression: ROCK (acute kidney injury) Cyclical vomiting Qualifiers: Vomiting Intractability: intractable Nausea presence: with nausea Qualified Code(s): G43.A1 - Cyclical vomiting, intractable Condition: Good Report Scribed for: Edilson Lee Report Scribed by: Vero Miller Date of Report: 11/10/18 Time of Report: 21:45
[2018-11-10] MEDS ORDERED: KETAMINE 500 MG/10 ML VIAL IV ONE ×2 (21:14→21:43)
[2018-11-10] MEDS ORDERED: PROMETHAZINE HCL 25 MG/ML INJ IVP ONE (21:14)
[2018-11-10] MEDS ORDERED: NS 1,000 ML IV ONE ×2 (21:15)
[2018-11-10] MEDS ORDERED: CAPSAICIN 0.025% CREAM TP ONE (21:59)
[2018-11-10 22:23] LABS: PLATELET COUNT 375 10^3/uL (150-400)
[2018-11-10] MEDS ORDERED: ACETAMINOPHEN 325 MG TAB PO PRN (23:33)
[2018-11-10] MEDS ORDERED: ONDANSETRON 4 MG/2 ML VIAL IVP PRN (23:33)
[2018-11-10] MEDS ORDERED: ONDANSETRON DISINTEGRATING 4 MG TAB PO PRN (23:33)
[2018-11-10] MEDS ORDERED: LORazepam 2 MG/ML INJ IVP PRN (23:33)
[2018-11-10] MEDS ORDERED: METOCLOPRAMIDE 10 MG/2 ML VIAL IVP PRN (23:33)
[2018-11-10] MEDS ORDERED: LORazepam 2 MG/ML INJ IVP ONE (23:42)
[2018-11-10] MEDS ORDERED: ONDANSETRON 4 MG/2 ML VIAL IVP ONE (23:47)
[2018-11-11] MEDS ORDERED: PHARMACY PAIN CONSULT 1 EA MISC SCH (00:15)
--- NOTE | 2018-11-11 00:43 | PDGENHP ---
History and Physical - Chief Complaint intractable nausea/vomiting/abdominal pain - History of Present Illness Source - Patient able to provide history. He c/o of severe nausea/abdominal pain and notes the multiple doses of ketamine, phenergan, IVF and capsaicin have not helped his pain. During the first visit of interview patient with escalating agitation and becomes verbally aggressive demanding medication for his symptoms including haldol, ativan and phenergan combination. He would not let me explain risks for combination with concerns for possible QTc prolongation during initial interview (patient has received QTc prolonging agents during ED stays and with zofran at home). ED staff attended to patient who was still upset so I stepped out and returned a few minutes later. Patient was given 1mg ativan and requested higher dose as well as dilaudid and that he just "wants to it knock out". During second visit he became agitated again after ekg completed showing QTc of 590 an explaining medication restrictions, dosing safety and monitoring. Patient significant other at bedside and also tried to discuss with patient. EMR reviewed and case discussed with ED provider and ED RN. HPI - This is a 33 yo M with pmhx significant for cyclic vomiting and tobacco dependence. He presents to the ED this evening with complaints of intractable mid/upper abdominal pain, nausea/vomiting. He denies any fevers/chills or sick contacts. Patient denies any diarrhea. He denies any hematemesis, melena or hematochezia. Patient reports he has been the ED and hospital multiple times over the course of several years but had been doing well until this year. He denies any known triggers for his symptoms or dietary changes. He notes he has been under increasing stress recently and per ED provider currently undergoing exams. Patient with increasing anxiety due to his increasing pain and nausea. Patient previously saw GI over 1 iker ago (cannot recall who he saw). denies history of EGD/c-scope. Has not had any recent follow up with a PCP. History Information - Allergies/Home Medication List Allergies/Adverse Reactions: No Known Allergies Allergy (Verified 11/10/18 21:08) I have personally reviewed and updated: family history, medical history, social history, surgical history - Past Medical History Additional medical history: cyclic vomiting. tobacco dependence. hx of marijuana use which patient currently denies active use. - Surgical History Reports: no pertinent surgical hx Additional surgical history: denies - Family History Additional family history: maternal extended family with history of CAD/SD. no FHx of GI disorders. - Social History Smoking Status: Current every day smoker Tobacco Use: Cigarettes Alcohol Use: None Drug Use: None, Marijuana (patient reports no current use) Review of Systems Review of Systems: ROS: 10pt was reviewed & negative except for what was stated in HPI & below Constitutional: Reports: no symptoms EENMT: Reports: no symptoms Cardiac: Reports: chest pain (left sided pain) Respiratory: Reports: no symptoms Gastrointestinal: Reports: vomitting, abdominal pain, nausea. Denies: black stools, rectal bleeding, abdominal distention, diarrhea Genitourinary: Reports: no symptoms Neurological: Reports: no symptoms Physical Exam Physical Exam: Selected Entries 11/10/18 21:08 Heart Rate 150 H Respiratory 20 Rate O2 Sat (%) 96 Temperature (C) 36.7 C Blood Pressure 150/94 H Mean Arterial 112 H Pressure (MAP) Temperature Oral Source Temp Pulse Resp BP Pulse Ox 36.7 C 132 H 20 170/124 H 93 11/10/18 21:08 11/11/18 00:00 11/11/18 00:00 11/11/18 00:00 11/11/18 00:00 Constitutional: other (mild distress with escalation and c/o symptoms during visit. ) Eyes: anicteric sclera, other (pupils equal symmetric. ), No scleral injection Ears, Nose, Mouth, Throat: dry mucous membranes Cardiovascular: regular rate and rhythym, tachycardia, No edema Respiratory: no respiratory distress, no rales or rhonchi, clear to auscultation , No inspiratory crackles Gastrointestinal: no palpable masses, other (hypoactive bowel sounds,present.), No guarding, No distension Skin: warm, normal color, no rashes or abrasions Musculoskeletal: full muscle strength, other (patient sits up independently. moves all extremities. ), No generalized weakness Neurologic: AAOx3, other (nonfocal exam. moves all extremities. alert and oriented. ), No facial droop Psychiatric: not encephalopathic, thought process linear, anxious, agitated ( patient develops increasing frustration and agitation see hpi. ) Lab Data & Imaging Review 11/10/18 22:05 11/10/18 22:41 WBC 17.31 10^3/uL (3.80-9.50) H 11/10/18 22:05 RBC 5.79 10^6/uL (4.40-6.38) 11/10/18 22:05 Hgb 18.4 g/dL (13.7-17.5) H 11/10/18 22:05 POC Hgb 19.4 gm/dL (13.7-17.5) H 11/10/18 22:10 Hct 50.4 % (40.0-51.0) 11/10/18 22:05 POC Hct 57 % (40-51) H 11/10/18 22:10 MCV 87.0 fL (81.5-99.8) 11/10/18 22:05 MCH 31.8 pg (27.9-34.1) 11/10/18 22:05 MCHC 36.5 g/dL (32.4-36.7) 11/10/18 22:05 RDW 11.9 % (11.5-15.2) 11/10/18 22:05 Plt Count 375 10^3/uL (150-400) 11/10/18 22:05 MPV 9.3 fL (8.7-11.7) 11/10/18 22:05 Neut % (Auto) 85.1 % (39.3-74.2) H 11/10/18 22:05 Lymph % (Auto) 6.2 % (15.0-45.0) L 11/10/18 22:05 [place] % (Auto) 7.8 % (4.5-13.0) 11/10/18 22:05 Eos % (Auto) 0.1 % (0.6-7.6) L 11/10/18 22:05 Baso % (Auto) 0.2 % (0.3-1.7) L 11/10/18 22:05 Nucleat RBC Rel Count 0.0 % (0.0-0.2) 11/10/18 22:05 Absolute Neuts (auto) 14.74 10^3/uL (1.70-6.50) H 11/10/18 22:05 Absolute Lymphs (auto) 1.07 10^3/uL (1.00-3.00) 11/10/18 22:05 Absolute Monos (auto) 1.35 10^3/uL (0.30-0.80) H 11/10/18 22:05 Absolute Eos (auto) 0.01 10^3/uL (0.03-0.40) L 11/10/18 22:05 Absolute Basos (auto) 0.04 10^3/uL (0.02-0.10) 11/10/18 22:05 Absolute Nucleated RBC 0.00 10^3/uL (0-0.01) 11/10/18 22:05 Immature Gran % 0.6 % (0.0-1.1) 11/10/18 22:05 Immature Gran # 0.10 10^3/uL (0.00-0.10) 11/10/18 22:05 POC Sodium 130 mEq/L (135-145) L 11/10/18 22:10 Sodium 132 mEq/L (135-145) L 11/10/18 22:41 POC Potassium 4.3 mEq/L (3.3-5.0) 11/10/18 22:10 Potassium 4.3 mEq/L (3.5-5.2) 11/10/18 22:41 POC Chloride 88 mEq/L (97-110) L 11/10/18 22:10 Chloride 82 mEq/L (97-110) L 11/10/18 22:41 Carbon Dioxide 21 mEq/l (22-31) L 11/10/18 22:41 POC Total CO2 26 mEq/L (22-31) 11/10/18 22:10 Anion Gap 29 mEq/L (6-14) H 11/10/18 22:41 POC BUN 51 mg/dL (7-23) H 11/10/18 22:10 BUN 53 mg/dL (7-23) H 11/10/18 22:41 Creatinine 3.8 mg/dL (0.7-1.3) H 11/10/18 22:41 POC Creatinine 4.4 mg/dL (0.7-1.3) H 11/10/18 22:10 Estimated GFR 18 11/10/18 22:41 Glucose 128 mg/dL (70-100) H 11/10/18 22:41 POC Glucose 156 mg/dL (70-100) H 11/10/18 22:10 Calcium 11.9 mg/dL (8.5-10.4) H 11/10/18 22:41 Phosphorus 8.8 mg/dL (2.5-4.5) H 11/10/18 22:41 EKG Interpretation: Positive for: LVH EKG additional interpertation: sinus tach 120s. no acute ST changes. LVH. some motion artifact. QTc prolonged 590. Assessment & Plan Assessment: 33 yo M with pmhx significant for cyclic vomiting, tobacco dependence and reported remote hx marijuana use. #ARF - likely pre-renal in etiology however review patient previous ED visits over course of last few weeks reveals elevated creatinine. will check UA, urine Cr/Na. IVF overnight and control of patient nausea/vomiting. Repeat BMP. BPs elevated but nausea/vomiting and pain likely parially contributing. consider renal US tomorrow after review of AM labs. #Cyclical vomiting (Acute) - Discussed patient QTc prolongation and limitations on dosing, scheduling of certain medications he has been requesting. Ativan prn 1mg (patient requesting escalating dosing) but discussed additional risk with delayed excretion in setting of ARF. phenergan. benadryl. will monitor on remote tele and if QT improves can re-consider use of haldol, zofran. #QT prolongation - QTc quite elevated 590 likely some component of rate but will monitor closely on tele. check electrolytes. avoid further QT prolonging agents at this time. This was discussed with patient and significant other at bedside. #tobacco dependence - nicotine patch. #hx of marijuana use - patient denies current use. urine studies, utox pending. #electrolyte disturbance - hyponatremia, hypochloridemia, hyper calcemia. 2/2 dehydration/volume loss. IVF and repeat in AM. #anion gap acidosis - IVF. control of nausea/vomiting. likely component of lactic acidosis in setting of severe vomiting sx/dehydration. repeat BMP in AM. #leukocytosis - suspect reactive. patient denies fevers/chills and has been afebrile. repeat CBC in AM. FEN - IVF. electrolyte monitoring and replacement prn. check magnesium with QT prolongation. sips/clears as tolerated when sx under better control. PPX - SCDs. holding anticoagulation encourage mobilization. COR - FULL. Dispo - Patient admitted to inpatient status on med surg with remote tele in setting of acute renal failure, persistent and severe sx. anticipate > 2 midnight stay.
[2018-11-11] MEDS: NICOTINE 14 MG/24 HR PATCH TD SCH ×2 (00:47→09:34)
[2018-11-11] MEDS ORDERED: CALCIUM CARBONATE 500 MG CHEWABLE TAB PO PRN (01:05)
[2018-11-11] MEDS ORDERED: FAMOTIDINE 20 MG/NACL 50 ML IV SCH (01:15)
[2018-11-11] MEDS: PANTOPRAZOLE SODIUM 40 MG VIAL IVP SCH ×2 (01:39→10:16)
[2018-11-11] MEDS: NS 1,000 ML IV SCH ×2 (01:39→13:30)
[2018-11-11] MEDS: LORazepam 2 MG/ML INJ IVP PRN ×4 (02:23→17:11)
[2018-11-11] MEDS: CAPSAICIN 0.025% CREAM TP SCH ×3 (10:19→21:18)
[2018-11-11] MEDS: PROMETHAZINE HCL 25 MG/ML INJ IVP PRN (10:20)
[2018-11-11 10:24] LABS: PLATELET COUNT 339 10^3/uL (150-400)
[2018-11-11] MEDS ORDERED: PROCHLORPERAZINE MALEATE 25 MG SUPPR PR PRN (13:35)
[2018-11-11] MEDS ORDERED: PROCHLORPERAZINE MALEATE 10 MG TAB PO PRN (13:35)
--- NOTE | 2018-11-11 13:43 | HOSPPROG ---
Hospitalist Progress Note Assessment/Plan: 33 yo M w cycl;ic vomiting, anxiety and ROCK ROCK: previously normal cr (0.9 in 02/11) abnormal values since then, which have been in prerenal setting 1. check u lytes and u/s 2. continue hydration 3. suspect he will haev a normalish baseline anxirty: has been suicidal w ssri's continue current ativan would not dc on benzos nausea/vomiting: denies recent MJ tox + for such asking for haldol/ativan/pain meds 1. trial of compazine 2. continue zofran and phenergan proph: scd's dispo :inpt hope to dc 11/12 if renal workup neg Subjective: case d/w dr echevarria Objective: Vital Signs Temp Pulse Resp BP Pulse Ox 36.9 C 120 H 14 142/95 H 94 11/11/18 11:53 11/11/18 11:53 11/11/18 11:53 11/11/18 11:53 11/11/18 11:53 Laboratory Results 11/11/18 10:10 11/11/18 10:10 11/10/18 11/11/18 11/12/18 05:59 05:59 05:59 Intake Total 1300 Output Total 550 Balance 750 - Physical Exam Constitutional: no apparent distress, not in pain Eyes: PERRL, anicteric sclera Ears, Nose, Mouth, Throat: moist mucous membranes, hearing normal Cardiovascular: regular rate and rhythym, no murmur, rub, or gallop Respiratory: no respiratory distress, no rales or rhonchi Gastrointestinal: normoactive bowel sounds, soft, non-tender abdomen Genitourinary: No figueroa in urethra Skin: warm, normal color Musculoskeletal: full muscle strength, no muscle tenderness Neurologic: AAOx3 Psychiatric: interacting appropriately ICD10 Worksheet Patient Problems: Problems Problem Status Onset ROCK (acute kidney injury) Acute Cyclical vomiting Acute Vomiting Acute
--- NOTE | 2018-11-11 16:14 | ASMTCMCOM ---
CM Note CM Note Notes: Pt is a 33 year old male. Pt reported that he had intractable nausea/vomiting/ abdominal pain. Pt reports that he does not have in CM needs. Plan: Independent Date Signed: 11/11/2018 04:14 PM Electronically Signed By:Kerri Gold
[2018-11-12] MEDS: LORazepam 2 MG/ML INJ IVP PRN ×4 (00:24→21:03)
[2018-11-12] MEDS: NS 1,000 ML IV SCH ×2 (04:09→18:12)
[2018-11-12] MEDS: PANTOPRAZOLE SODIUM 40 MG VIAL IVP SCH (08:56)
[2018-11-12] MEDS: NICOTINE 14 MG/24 HR PATCH TD SCH (08:56)
[2018-11-12] MEDS: CAPSAICIN 0.025% CREAM TP SCH ×3 (09:01→21:13)
[2018-11-12] MEDS: PROMETHAZINE HCL 25 MG/ML INJ IVP PRN ×2 (10:13→21:12)
[2018-11-12 10:33] LABS: PLATELET COUNT 256 10^3/uL (150-400)
--- NOTE | 2018-11-12 10:47 | PDMN ---
Medical Necessity Medical necessity: Pt meets IP criteria per MD & MCG [id number]; est los >2 mn for eval/tx of acute renal failure w/elevated creatinine (0.9 in 02/11, now 3.8), QT prolongation, electrolyte disturbance & anion gap acidosis in the setting of severe N/V & abdominal pain; admit for further workup/monitoring, IVFs, IV antiemetics & pain management; hx cyclic vomiting; per H&P & order 11/10/18
--- NOTE | 2018-11-12 12:15 | ECHO ---
[email or web address] [address] [address] Main: [phone] Echocardiography Examination Transthoracic Name: VIPUL OSHEA MR#: [id number] Study Date: 11/12/2018 Study Time: 11:19 AM Date of : 1985 Age: 33 year(s) Height: 190.5 cm (75 in.) Weight: 81.65 kg (180 lb.) BSA: 2.1 m2 Gender: Male Examination: Echo Contrast: Image Quality: Adequate apical window, technically Rhythm: difficult parasternal window Heart Rate: BP: / Indication: Abnormal EKG/nausea Procedure Staff Referring Physician: Occupational Rehabilitation Aide: Deyanira Blank RDCS Reading Physician: Sushil Oneill MD Requesting Provider: Ordering Physician: Court Bearden Indication: Abnormal EKG/nausea Measurements Chambers AV/MV Label Value Normal Value Label Value Normal Value LVDd, 2D 5 cm (4.2cm - 5.9cm) AV PGmean 3 mmHg LVDs, 2D 2.8 cm (2.1cm - 4cm) AV Vmax 1.32 m/s IVSd, 2D 0.7 cm (0.6cm - 1.1cm) MV E Vmax 0.78 m/s LVPWd, 2D 0.9 cm (0.6cm - 1cm) MV A Vmax 0.58 m/s LVEF, 2D 76 % (54% - 74%) MV E/A 1.34 LADs, 2D 3.4 cm (3cm - 4cm) MV E/E' lateral 4.4 Additional Vessels MV E/E' septal 6.7 (0.6 - 2.6) Label Value Normal Value MV E' septal 0.12 m/s AoRoot, MM 3.4 cm (2.2cm - 3.7cm) MV E' lateral 0.18 m/s MV E/E' mean 5.2 MV E' mean 0.15 m/s Conclusions Left Ventricle: Left ventricle is normal in size. EF range is estimated at 605 % - 70 %. There are no regional wall motion abnormalities. Patient: VIPUL OSHEA Study Date: 11/12/2018 Page 1 of 3 11:19 AM Left ventricular diastolic function parameters are normal. Right Ventricle: Normal size right ventricle. Mitral Valve: Mitral valve is normal in appearance. Aortic Valve: Aortic leaflets exhibit normal cuspal separation. Tricuspid Valve: Trivial tricuspid regurgitation. Pericardium: No pericardial effusion. Overall Conclusions: There is no previous echocardiogram for comparison. Findings Left Ventricle: Left ventricle is normal in size. Normal global systolic left ventricular function. EF range is estimated at 605 % - 70 %. Left ventricle wall thickness is normal. There are no regional wall motion abnormalities. Left ventricular diastolic function parameters are normal. IVS: The septum is intact. Right Ventricle: Normal size right ventricle. Right ventricular systolic function is normal. Left Atrium: The left atrium is normal in size. IAS: Normal appearing atrial septum. Right Atrium: The right atrium is normal in size. Mitral Valve: Mitral valve is normal in appearance. No mitral regurgitation. No mitral valve stenosis. Aortic Valve: Aortic leaflets exhibit normal cuspal separation. No aortic valve regurgitation. There is no aortic stenosis. Tricuspid Valve: Tricuspid valve leaflets are normal in appearance and function. Trivial tricuspid regurgitation. No tricuspid valve stenosis. Pulmonary artery pressure normal. Pulmonic Valve: Pulmonic valve is poorly visualized. No pulmonic valve regurgitation is evident. There is no pulmonic valve stenosis. Aorta: The aorta is normal. The aortic root size in M-mode measures 3.4 cm. Aorta Measurements AoRoot, MM is 3.4 cm. Pericardium: No pericardial effusion. No pleural effusion present. Exam Details Procedure Ordered: Echo Procedure Status: Routine study Patient: VIPUL OSHEA Study Date: 11/12/2018 Page 2 of 3 11:19 AM Image Quality: Adequate apical window, technically difficult parasternal window Facility Location: Cardiac Echo 1 (No Signature Object) Patient: VIPUL OSHEA Study Date: 11/12/2018 Page 3 of 3 11:19 AM [id number]
[2018-11-12] MEDS ORDERED: ONDANSETRON 4 MG/2 ML VIAL IVP PRN (13:14)
[2018-11-12] MEDS: HYDROmorphONE/DILAUDID 1 MG/ML INJ IVP PRN ×5 (13:40→21:01)
[2018-11-12] MEDS ORDERED: ZOLPIDEM TARTRATE 5 MG TAB PO PRN (15:43)
--- NOTE | 2018-11-12 16:05 | HOSPPROG ---
Hospitalist Progress Note Assessment/Plan: * Severe epigastric pain/N/V - cyclic vomiting vs cannabis hyperemesis -denies THC use but tox screen positive - showering for hours -no recent EGD - patient requests GI consult to consider -d/w Dr. Ventura - he will consult in am * QT prolongation -repeat EKG better, but still borderline -patient requests IV Haldol and IV Zofran as these are required to break cycle -discussed risks of these meds with his EKG -administer judiciously - monitor on tele * ARF due to dehydration -creatinine normalized Subjective: Severe nausea, won't get out of shower for hours, demanding increased doses of Ativan, dilaudid and haldol plus sleeping pill to "break cycle" Has been having these attacks since teenager triggered by "a traumatic event" Objective: Vital Signs Temp Pulse Resp BP Pulse Ox 37.0 C 91 14 132/63 H 95 11/12/18 07:52 11/12/18 07:52 11/12/18 07:52 11/12/18 07:52 11/12/18 07:52 Laboratory Results 11/12/18 10:15 11/12/18 10:15 11/11/18 11/12/18 11/13/18 05:59 05:59 05:59 Intake Total 1300 1500 Output Total 550 1000 Balance 750 -1000 1500 IV dilaudid - using frequently - increase dose in hopes to break cycle d/w Dr Ventura EKGs viewed x 2 - repeat today with better qt interval but still borderline ECHO - negative - Time Spent With Patient Time Spent with Patient: greater than 35 minutes Time Spent with Patient: Greater than 35 minutes spent on this patients care, greater than 50% of time spent counseling, educating, and coordinating care regarding the above mentioned plan. - Physical Exam Constitutional: uncomfortable, unkempt, other (sitting naked in shower, asked that I see him in shower as he can't get out or nausea returns), No no apparent distress, No not in pain, No obese Ears, Nose, Mouth, Throat: No hard of hearing Cardiovascular: No edema Respiratory: no respiratory distress Gastrointestinal: No distension Skin: no rashes or abrasions, no fluctuance, no induration Neurologic: AAOx3, sensation intact bilaterally Psychiatric: thought process linear, anxious, agitated ICD10 Worksheet Patient Problems: Problems Problem Status Onset Cyclical vomiting Acute ROCK (acute kidney injury) Acute Vomiting Acute
[2018-11-12] MEDS: HALOPERIDOL LACT 5 MG/ML INJ IVP PRN ×2 (16:07→21:57)
[2018-11-13] MEDS: NS 1,000 ML IV SCH (02:46)
[2018-11-13] MEDS: HYDROmorphONE/DILAUDID 1 MG/ML INJ IVP PRN ×3 (03:46→12:15)
[2018-11-13] MEDS: PROMETHAZINE HCL 25 MG/ML INJ IVP PRN (03:46)
[2018-11-13] MEDS: LORazepam 2 MG/ML INJ IVP PRN ×2 (03:47→09:12)
[2018-11-13] MEDS: HALOPERIDOL LACT 5 MG/ML INJ IVP PRN ×2 (03:47→12:15)
[2018-11-13] MEDS: NICOTINE 14 MG/24 HR PATCH TD SCH (03:49)
[2018-11-13] MEDS: PANTOPRAZOLE SODIUM 40 MG VIAL IVP SCH (09:13)
[2018-11-13] MEDS ORDERED: LR 1,000 ML IV ONE (10:15)
--- NOTE | 2018-11-13 10:18 | PDANEPAE ---
ANE History of Present Illness EGD ANE Past Medical History - Pulmonary History Hx Oxygen in Use at Home: No Hx Sleep Apnea: No Sleep Apnea Screening Result - Last Documented: Negative - Endocrine History Hx Diabetes: No - Renal History Hx Renal Disorders: Yes Renal History Comment: ARF - GI History Hx Gastrointestinal Disorders: Yes Gastrointestinal History Comment: hyperemesis - Chronic Pain History Chronic Pain: No ANE Review of Systems Review of systems is: negative Review of Systems: ANE Patient History - Allergies Allergies/Adverse Reactions: No Known Allergies Allergy (Verified 11/10/18 21:08) - Home Medications Home medications: home medication list seen and reviewed Home Medications: Promethazine HCl [Phenergan 25mg (*)] 25 mg PO Q6 PRN 11/11/18 [Last Taken Unknown] - NPO status NPO Status: no food or drink >8 hours NPO Since - Liquids (Date): 11/12/18 NPO Since - Liquids (Time): 23:00 NPO Since - Solids (Date): 11/12/18 NPO Since - Solids (Time): 23:00 - Anes Hx Anes Hx: no prior problems - Smoking Hx Smoking Status: Current every day smoker Marijuana use: Yes - Alcohol Use Alcohol Use: None - Family Anes Hx Family Anes Hx: none ANE Labs/Vital Signs - Labs Result Diagrams: 11/12/18 10:15 11/12/18 10:15 - Vital Signs Vital Signs: reviewed preoperatively; see RN documention for details Blood Pressure: 123/85 Heart Rate: 84 Respiratory Rate: 16 O2 Sat (%): 95 Height: 187 cm Weight: 82.01 kg ANE Physical Exam - Airway Neck exam: FROM Mallampati Score: Class 2 Mouth exam: normal dental/mouth exam - Pulmonary Pulmonary: no respiratory distress - Cardiovascular Cardiovascular: regular rate and rhythym - ASA Status ASA Status: III ANE Anesthesia Plan Total IV Anesthesia: Yes
--- NOTE | 2018-11-13 10:35 | SOAPPROG ---
SOAP Progress Note Assessment/Plan: Assessment:Plan: see full dictated consult 33 y/o male with n/v likely from cannabis overuse denies use but has positive tox screen EGD this am with anesthesia Maxim Ventura MD [phone] 11/13/18 10:34 Objective: Vital Signs Temp Pulse Resp BP Pulse Ox 37 C 84 16 123/85 H 95 11/13/18 10:06 11/13/18 10:25 11/13/18 10:25 11/13/18 10:25 11/13/18 10:25 Laboratory Results 11/12/18 10:15 11/12/18 10:15 11/12/18 11/13/18 11/14/18 05:59 05:59 05:59 Intake Total 5768.5 Output Total 1000 Balance -1000 5768.5 ICD10 Worksheet Patient Problems: Problems Problem Status Onset ROCK (acute kidney injury) Acute Cyclical vomiting Acute Vomiting Acute
[2018-11-13] MEDS ORDERED: PROPOFOL/EMULSION 500 MG/50 ML BOTTLE IV ONE (10:49)
[2018-11-13] MEDS ORDERED: LIDOCAINE 2% 100 MG/5 ML SYR ONE (10:49)
--- NOTE | 2018-11-13 10:51 | POSTANESTH ---
Post Anesthetic Evaluation Cardiovascular Status: Normal, Stable, Similar to Pre-Op Cond Respiratory Status: Similar to Pre-op Cond. Level of Consciousness/Mental Status: Can Participate in Eval, Mildly Sleepy, Arousable Pain Control: Adequate, Prn Tx Ordered Nausea/Vomiting Control: Adequate, Prn Tx Ordered Complications Possibly Related to Anesthesia: None Noted
[2018-11-13 13:05] VITALS: BP 128/75
--- NOTE | 2018-11-13 13:54 | GCON ---
[f rep st] CONSULTATION DATE OF CONSULTATION: 11/13/2018 REFERRING PHYSICIAN: Court Bearden MD INDICATION FOR CONSULTATION: Nausea, vomiting and probable hyperemesis secondary to cannabis. HISTORY OF PRESENT ILLNESS: I have been asked by Dr. Bearden to see Arpit in consultation for nausea, vomiting. He is a 33-year-old male who is known to our outpatient service from an office visit in August 2016, for opioid withdrawal , nausea, vomiting and cannabis-induced disorders. At that point, it was recommended that he now only see a primary care physician, but he discontinue marijuana; it is likely contributing to his chronic nausea and vomiting. At that point, he was also withdrawn from narcotics he had been on, Suboxone and rapidly tapered off after having been on it for approximately a year and a half. According to the note, he stopped marijuana for only 1 week, but renewed it because he thinks the only thing it manages is nausea and vomiting. He states that it began at age 17 after a stressful event. He has been evaluated in [place], although we do not have that data at the present time. He has had multiple visits to the [facility] ER for nausea and vomiting, 3 in the last few months. He also was admitted on August 18 to the ER taking Adderall and alcohol together. On this admission, he had significant abdominal pain, nausea , vomiting and dehydration as well as acute renal failure, which has normalized with IV fluids. He has been taking very long hot showers in order to decrease the symptoms, also consistent with cannabis overuse. His other laboratory studies were essentially normal and reviewed below, and previously his imaging studies have been normal as well. He is now admitted with the above and I am called to help evaluate and treat in that regard. PAST MEDICAL HISTORY: Nausea, vomiting, substance abuse. PAST SURGICAL HISTORY: Left hand surgery. SOCIAL HISTORY: He admits to smoking a pack per day. He says he does not drink alcohol. He declined any marijuana use until I told him that his tox screen was positive, then he admitted to smoking just 2 puffs off a joint at a concert recently. FAMILY HISTORY: Thyroid disease. No celiac sprue, malignancies to his knowledge. MEDICATIONS: At home are none. Medications in hospital include Tylenol p.r.n. , Tums p.r.n., Haldol injection, Dilaudid p.r.n., Ativan p.r.n., nicotine patch , Zofran p.r.n., Protonix 40 mg IV daily, Compazine p.r.n., Phenergan p.r.n., Ambien p.r.n. for sleep. ALLERGIES: No known drug allergies. REVIEW OF SYSTEMS: A complete review of systems was performed and negative other than in HPI. PHYSICAL EXAM: GENERAL: Well-developed, well-nourished male sitting in his bed. No acute distress. He is somewhat somnolent, but easily arousable. VITAL SIGNS: Blood pressure is 123/85, pulse is 84, respirations are 16. He is 95% on room air, temperature 37. HEENT: Eyes: Anicteric. [place], EOMI. Mouth: No lesions. Moist membranes. NECK: Supple for range of motion. No JVD. BACK: No spine tenderness. No CVA tenderness. LUNGS: Clear to auscultation. CARDIAC: S1, S2. Regular rate and rhythm. ABDOMEN: Bowel sounds are normal in pitch and frequency. ABDOMEN: Soft with minimal discomfort on deep palpation. No rebound. No guarding. No hepatosplenomegaly. EXTREMITIES: No cyanosis, clubbing or edema. NEUROLOGIC: Cranial nerves intact, nonfocal, alert, oriented x3. SKIN: No stigmata of advanced liver disease. LABORATORY DATA: From yesterday, WBC 7.72, hemoglobin 14.4, hematocrit 40.6, platelet count 256. Sodium 135, potassium 3.5, chloride 96, bicarb 24, BUN 40, creatinine 1.1, glucose 107, phosphorus 2.3, bilirubin 1.0, AST 45, ALT 43, alkaline phosphatase 53, albumin 4.8. On admission from 11/10, creatinine 4.4, BUN 51. Toxicology screen from November 11, 2018, showed marijuana was positive, otherwise was negative. From the laboratory studies from 02/11/2007, shows hepatitis B surface antigen negative, hepatitis B surface antibody positive, hepatitis C negative. HIV 1 and 2 negative. He is immune to hep C. IMAGING: Abdominal pelvis ultrasound performed on November 11, 2018, revealed numerous tiny obstructing calculi in the left kidney. Abdominal pelvis CT scan performed August 25, 2016, without contrast: Non-obstructing left nephrolithiasis. No definite acute findings in the abdomen or pelvis. Abdominal CAT scan from July 27, 2016, performed with IV contrast showed mild constipation, appendix obscured. Otherwise, normal CT scan of the abdomen with a msdg-bi-sjqexyns amount of residual stool in the colon. ASSESSMENT: 1. Nausea, vomiting, likely related to cannabis hyperemesis syndrome. 2. Kidney stones. 3. Substance abuse. 4. Tobacco use. 5. Abdominal pain. RECOMMENDATIONS: 1. EGD for evaluation of above. 2. Recommend patient stop all cannabis intake for at least 6 months. 3. Evaluation of nephrolithiasis as per PCP or Urology. 4. Continue PPI, can add H2RA as a bedtime medication. 5. Anti-reflux lifestyle changes. 6. Further medications to follow results above and clinical course. Maxim Ventura MD /[id number]/MODL MTDD
--- NOTE | 2018-11-13 14:02 | ASMTLACE ---
DME Length of stay for Answers: 2 days current admission Acuity / Level of Answers: Yes Care: Did the patient have an inpatient admission? Comorbidities - select Answers: Other Notes: Cyclic vomiting; IBS all that apply # of Emergency department Answers: 3-4 visits in the last 6 months Score: 9 Date Signed: 11/13/2018 02:01 PM Electronically Signed By:Barbara Jones RN
--- NOTE | 2018-11-13 14:04 | ASMTCMCOM ---
CM Note CM Note Notes: Met with pt, gave him phone number to [facility], per MD request. Also sent email to Janice at [facility] to follow up with pt. DC Plan: Independent Date Signed: 11/13/2018 02:04 PM Electronically Signed By:Barbara Jones RN
--- NOTE | 2018-11-13 21:12 | CPEKG ---
Test Reason : OPEN Blood Pressure : / mmHG Vent. Rate : 120 BPM Atrial Rate : 120 BPM P-R Int : 134 ms QRS Dur : 093 ms QT Int : 417 ms P-R-T Axes : 081 089 269 degrees QTc Int : 590 ms Sinus tachycardia Biatrial enlargement Probable left ventricular hypertrophy Prolonged QT interval Confirmed by Kenneth Short ([id number]) on 11/13/2018 9:11:55 PM Referred By: Teresa Veronica Confirmed By:Kenneth Short
--- NOTE | 2018-11-13 22:25 | GDS ---
[f rep st] DISCHARGE SUMMARY DISCHARGE DIAGNOSES: 1. Cannabis hyperemesis syndrome. 2. Possible cyclic vomiting syndrome. 3. QT prolongation. 4. Acute renal failure due to dehydration. HISTORY: The patient is a 33-year-old male who has had a long-standing history of recurrent bouts of abdominal pain and vomiting. He says these started when he was a teenager after a traumatic event h appened in his life. There was also concern for cannabis hyperemesis as his tox screen was positive for marijuana and nausea vomiting was greatly improved by hot showers. He showered for hours on end during his hospitalization here. He denied continued use of marijuana, but his tox screen was positi ve. Gastroenterology was consulted per patient request. He underwent an EGD that was unremarkable. The patient was profoundly dehydrated on presentation. This was evident by a creatinine of 3.8. Wit h hydration his creatinine has normalized. Patient does have issues with QT prolongation. He did have an EKG during this hospitalization that s howed a very prolonged QT of much greater than 500. Therefore, we had to be judicious regarding our use of IV Haldol and IV Zofran. This angered the patient as these are the medications that typically break his cyclic vomiting cycles. Repeat EKG later in his hospitalization showed improvement of his QT segment, and it was now only borderline prolonged. We, therefore, were able to judiciously use s ome Haldol and Zofran to break the cycle, and it worked and he was able to go home the next day. Kanwal phillips was educated regarding presence of QT prolongation on his EKG and how this needs to be taken in consideration when using IV medications for treatment of his vomiting. DISCHARGE MEDICATIONS: Please see computerized record for full detailed list. New medications: 1. Phenergan and Zofran can be continued as needed, although he is warned regarding Zofran use and Q T prolongation. 2. Protonix 40 mg p.o. daily. ADDITIONAL DISCHARGE INSTRUCTIONS: 1. Avoid all products containing marijuana. 2. Patient is given an outpatient referral to [facility] as he complains of severe anxie ty, asking for a Xanax prescription which was not given. 3. Avoid QT prolonging agents and use Zofran very sparingly. Greater than 30 minutes' time was spent arranging this discharge. Patient was seen and examined by nicola wallis on the day of discharge. /[id number]/MODL
--- NOTE | 2018-11-14 14:00 | CPEKG ---
Test Reason : OPEN Blood Pressure : / mmHG Vent. Rate : 094 BPM Atrial Rate : 096 BPM P-R Int : 135 ms QRS Dur : 098 ms QT Int : 378 ms P-R-T Axes : 077 085 078 degrees QTc Int : 473 ms Sinus rhythm Right atrial enlargement Borderline prolonged QT interval Confirmed by Luca Villalba ([id number]) on 11/14/2018 1:59:58 PM Referred By: Teresa Veronica Confirmed By:Luca Villalba
== END 2018-11-13 14:13 | disposition home or self-care (01) | DRG 812 ==
LOC: OBSVTOIN 23:36 → F3E 11-11 00:15
PROVIDERS: ADMIT Family Medicine; ATTEND Family Medicine
DX: T40.7X1A Poisoning by cannabis (derivatives), accidental (unintentional), initial encounter (principal); R11.2 Nausea with vomiting, unspecified; F12.10 Cannabis abuse, uncomplicated; G43.A0 Cyclical vomiting, in migraine, not intractable; N17.9 Acute kidney failure, unspecified; E87.1 Hypo-osmolality and hyponatremia; I45.81 Long QT syndrome; F17.210 Nicotine dependence, cigarettes, uncomplicated
CPT/HCPCS: 80305; 82435-PO; 82565-PO; 82947-PO; 84132-PO; 84295-PO; 84520-PO; 85014-ER; 96374; J1170; J1200; J1630; J2001; J2060; J2405; J2550; J2704

== ENCOUNTER 2018-12-01 06:44 | Emergency (ER) | payer MEDICAID | END 2018-12-01 11:57 | disposition left against medical advice (07) ==